=== PATIENT | female | born 1980 | race Caucasian/White ===

== ENCOUNTER 2017-07-31 23:34 | Emergency (ER) | payer MEDICAID ==
[2017-08-01 02:05] VITALS: BP 106/67
== END 2017-08-01 01:48 | disposition home or self-care (01) ==
LOC: ED 23:34
DX: R10.9 Unspecified abdominal pain (principal); R30.9 Painful micturition, unspecified; R11.2 Nausea with vomiting, unspecified; Z88.0 Allergy status to penicillin; Z90.49 Acquired absence of other specified parts of digestive tract
CPT/HCPCS: J1885

== ENCOUNTER 2017-08-01 19:24 | Emergency (ER) | payer MEDICAID ==
[2017-08-02 01:47] LABS: microscopic required? NO
[2017-08-02 02:20] LABS: urine erythrocyte NEGATIVE (NEGATIVE)
[2017-08-02 03:21] VITALS: BP 107/68
== END 2017-08-02 03:21 | disposition home or self-care (01) ==
LOC: ED 19:24
PROVIDERS: Emergency Medicine
DX: S39.012A Strain of muscle, fascia and tendon of lower back, initial encounter (principal); Z88.0 Allergy status to penicillin; X58.XXXA Exposure to other specified factors, initial encounter; Y93.89 Activity, other specified; Y92.89 Other specified places as the place of occurrence of the external cause; Y99.8 Other external cause status
CPT/HCPCS: J1885

== ENCOUNTER 2019-01-14 10:48 | Emergency (ER) | payer MEDICAID ==
[~2019-01-14] VITALS: Ht 149.9 cm; Wt 54.9 kg
[2019-01-14 10:54] VITALS: Ht 149.9 cm; Wt 54.9 kg
[2019-01-14 14:32] LABS: BASOPHIL % 0.4 % (0-2); PLATELET COUNT 236 x10^3mcL (130-400); RED CELL DISTRIBUTION WIDTH 14.1 % (11.5-14.5)
[2019-01-14 16:40] VITALS: BP 99/59
== END 2019-01-14 16:40 | disposition home or self-care (01) ==
LOC: ED 10:48
PROVIDERS: Emergency Medicine
DX: O26.891 Other specified pregnancy related conditions, first trimester (principal); R10.30 Lower abdominal pain, unspecified; Z3A.01 Less than 8 weeks gestation of pregnancy; Z88.0 Allergy status to penicillin
CPT/HCPCS: 36415